=== PATIENT | male | born 1935 | race Caucasian/White ===

== ENCOUNTER 2018-08-12 14:37 | Observation (INO) | payer MEDICARE, OTHER ==
[~2018-08-12] VITALS: Ht 188 cm; Wt 97.5 kg
[~2018-08-12 14:37] MED LIST: ACYC400 PO; ASPI81CH PO; CHOL10002 PO; CLEM1.34 PO; DOXY100 PO; FISH OIL + D31 EACH PO; MAGNESIUM ZINC PO; MUCINEX FAST-M1 EAC8 PO; NAPR220 PO; OCUSIGHT PO; OXYC5 PO; PROSTATE PLUS PO; Super B Comple150 MG PO; TERB250 PO; TESTOSTERONE5 G1 TOP; TOCO1000 PO; VIAGRA PO; [UNRECOGNIZED DRUG - OTHER] PO; [UNRECOGNIZED DRUG - OTHER] PO; [UNRECOGNIZED DRUG - REMARK] PO
[2018-08-12 15:47] LABS: BASOPHILS ABSOLUTE AUTO 0.02 K/mm3 (0.00-0.23); BASOPHILS PERCENT AUTO 0 % (0-2); EOSINOPHILS ABSOLUTE AUTO 0.07 K/mm3 (0.00-0.68); EOSINOPHILS PERCENT AUTO 1 % (0-6); Hematocrit 42.7 % (37.0-53.0); Hemoglobin 14.5 g/dL (13.5-17.5); IMMATURE GRAN ABSOLUTE AUTO 0.02 K/mm3 (0.00-0.10); IMMATURE GRAN PERCENT AUTO 0 % (0-1); LYMPHOCYTES ABSOLUTE AUTO 1.62 K/mm3 (0.84-5.20); LYMPHOCYTES PERCENT AUTO 23 % (21-46); MONOCYTES ABSOLUTE AUTO 0.82 K/mm3 (0.16-1.47); MONOCYTES PERCENT AUTO 12 % (4-13); Mean Corpuscular HGB 31.3 pg (26.0-34.0); Mean Corpuscular Volume 92 fL (80-100); NEUTROPHILS ABSOLUTE AUTO 4.36 K/mm3 (1.96-9.15); NEUTROPHILS PERCENT AUTO 63 % (41-73); Platelet Count 271 K/mm3 (150-400); RDW Standard Deviation 47.8 fL (35.1-46.3); Red Blood Cell Count 4.64 M/mm3 (4.30-5.90); White Blood Cell Count 6.91 K/mm3 (4.00-11.30)
[2018-08-12 15:56] LABS: Alanine Aminotransfer (ALT/SGP 28 U/L (12-78); Albumin/Globulin Ratio 1.2 (0.8-1.8); Alk Phos 48 U/L (50-136); Anion Gap 5 mmol/L (6-16); Aspartate Aminotrans (AST/SGOT 23 U/L (12-37); Bilirubin, Total 0.3 mg/dL (0.1-1.0); Blood Urea Nitrogen 22 mg/dL (8-24); Bun/Creatinine Ratio 23.5 (12.0-20.0); CO2, Blood 27 mmol/L (21-32); Chloride, Blood 103 mmol/L (98-108); Creatinine, Blood 0.94 mg/dL (0.60-1.20); Globulin, Blood 3.3 g/dL (2.2-4.0); Glomerular Filtration Rate >60 (60-); Glucose, Blood 97 mg/dL (70-99); Potassium, Blood 4.7 mmol/L (3.5-5.5); Sodium, Blood 135 mmol/L (136-145); Total Protein, Blood 7.3 g/dL (6.4-8.2)
[2018-08-12 16:22] LABS: International Normalized Ratio 1.03; Prothrombin Time Results 10.9 Sec (9.7-11.5)
[2018-08-12] MEDS ORDERED: **INCOMPLETE MED REC (16:46)
[2018-08-12] MEDS ORDERED: PROP80ER PO (17:03)
[2018-08-12] MEDS ORDERED: TELMISARTAN-HC1 EAC1 PO (17:04)
[2018-08-12] MEDS ORDERED: Hair, Skin & N1 EACH PO (17:04)
--- NOTE | 2018-08-12 22:06 | NUR ---
PATIENT ADMISSION THE PATIENT WAS ADMITTED TO THE MEDICAL FLOOR FROM THE ER, AFTER REPORT WA GIVEN FOR THE PATIENT. THE PATIENT PRESENTED A&O, VITALS WNL, LUNGS CLEAR. THE PATIENT'S ADMISSION WAS COMPLETED AND THE PATIENT WENT TO SLEEP. WILL CONTINUE TO MONITOR.
--- NOTE | 2018-08-13 04:33 | NUR ---
SHIFT SUMMARY THE PATIENT WAS ADMITTED AT 2044 THIS SHIFT FOR OBSERVATION. THE PATIENT PRESENTED A&O X4, VITAL WNL AND WITH LUNGS THAT WERE CLEAR. THE PATIENT WAS PLACED ON TELLE. THE PATIENT STARTED SHOWING PAC'S AT THE RATE OF 10-15 PER MINUTE AT 0415. WHEN THE PATIENT WAS CHECKED UPON, HE DENIED ANY ISSUES, STATING HE FELT FINE. THE PATIENT HAS SLEPT MOST OF THE SHIFT SINCE ARRIVAL. WILL CONTINUE TO MONITOR.
[2018-08-13 05:29] LABS: Anion Gap 7 mmol/L (6-16); Blood Urea Nitrogen 20 mg/dL (8-24); Bun/Creatinine Ratio 21.9 (12.0-20.0); CO2, Blood 27 mmol/L (21-32); Calcium, Blood 8.9 mg/dL (8.5-10.1); Chloride, Blood 106 mmol/L (98-108); Creatinine, Blood 0.91 mg/dL (0.60-1.20); Glomerular Filtration Rate >60 (60-); Glucose, Blood 89 mg/dL (70-99); Potassium, Blood 3.9 mmol/L (3.5-5.5); Sodium, Blood 140 mmol/L (136-145)
--- NOTE | 2018-08-13 12:06 | NUR ---
Echocardiogram performed.
[2018-08-13] MEDS ORDERED: BAYER CHEWABLE81 MG PO (12:25)
[2018-08-13] MEDS ORDERED: ATOR40TA PO (12:26)
[2018-08-13] MEDS ORDERED: CLOP75 PO (12:27)
--- NOTE | 2018-08-13 13:40 | NUR ---
PATIENT DISCHARGED TO HOME. NURSE WENT OVER NEW MEDS WITH PATIENT AND . MEDS FAXED INTO [facility] IN [place].PATIENT HAD PREVIOUSLY REMOVED HIS OWN IV. CHARGE NURSE WRAPPED ARM, NO SS OF INFECTION NOTED. PATIENT DRESSED HIMSELF AND WAS ABLE TO WALK OUT TO CAR WITH HIS . REFUSED WC.
== END 2018-08-13 13:37 | disposition home or self-care (01) ==
LOC: ER 14:37 → MEDS 14:38
PROVIDERS: Emergency Medicine; ADMIT Hospitalist
DX: G45.9 Transient cerebral ischemic attack, unspecified (principal); I10 Essential (primary) hypertension; M19.90 Unspecified osteoarthritis, unspecified site; R25.1 Tremor, unspecified; Z88.8 Allergy status to other drugs, medicaments and biological substances; Z91.030 Bee allergy status; Z91.040 Latex allergy status; Z79.899 Other long term (current) drug therapy; Z79.82 Long term (current) use of aspirin
CPT/HCPCS: 36415; 70450; 80048; 80053; 85025; 85610; 85730; 93005; 93010; 93306; 93880; 96372; 96374; 99285-25; G0378; J1650

== ENCOUNTER → 2019-06-06 | Outpatient (CLI) | payer MEDICARE, OTHER ==
[~2019-06-06] MED LIST changes: +**INCOMPLETE MED REC; +ATOR40TA PO; +BAYER CHEWABLE81 MG PO; +CLOP75 PO; +Hair, Skin & N1 EACH PO; +PROP80ER PO; +TELMISARTAN-HC1 EAC1 PO
== END | disposition home or self-care (01) ==
LOC: PLD 08:33 → LAB SHORT 08:33
DX: D36.17 Benign neoplasm of peripheral nerves and autonomic nervous system of trunk, unspecified (principal)
CPT/HCPCS: 88305

== ENCOUNTER 2020-05-03 09:46 | Day surgery (SDC) | payer MEDICARE ==
[~2020-05-03] VITALS: Ht 188 cm; Wt 97.4 kg
[~2020-05-03 09:46] MED LIST changes: +ASPIR 8181 MG PO; +Acyclovir400 MG PO; +DONE5 PO; +MICARDIS HCT 81 EACH PO; +Revatio20 MG PO
== END 2020-05-03 11:42 | disposition home or self-care (01) ==
LOC: ORSCSDS 09:46
PROVIDERS: Student in an Organized Health Care Education/Training Program
PROC: 0DB58ZX Excision of Esophagus, Via Natural or Artificial Opening Endoscopic, Diagnostic (ICD-10-PCS; principal; 2020-05-03 11:00)
PROC: 0D758ZZ Dilation of Esophagus, Via Natural or Artificial Opening Endoscopic (ICD-10-PCS; principal; 2020-05-03 11:00)
PROC: 0DB78ZX Excision of Stomach, Pylorus, Via Natural or Artificial Opening Endoscopic, Diagnostic (ICD-10-PCS; principal; 2020-05-03 11:00)
DX: R13.10 Dysphagia, unspecified (principal); K29.70 Gastritis, unspecified, without bleeding; K21.9 Gastro-esophageal reflux disease without esophagitis; I10 Essential (primary) hypertension; Z86.73 Personal history of transient ischemic attack (TIA), and cerebral infarction without residual deficits; Z79.01 Long term (current) use of anticoagulants; Z79.899 Other long term (current) drug therapy; Z79.82 Long term (current) use of aspirin
CPT/HCPCS: 88305; 88342; J2704; J7120

== ENCOUNTER 2020-08-24 08:36 | Day surgery (SDC) | payer MEDICARE ==
[~2020-08-24] VITALS: Ht 188 cm; Wt 98.6 kg
[2020-08-24] MEDS ORDERED: PROP80ER (09:12)
[2020-08-24] MEDS ORDERED: THYR60 (09:14)
[2020-08-24] MEDS ORDERED: NAPR220 (09:14)
[2020-08-24] MEDS ORDERED: DONE5 (09:14)
--- NOTE | 2020-08-24 10:40 | NUR ---
08/24/20 1040 Homa Ndiaye BUPIVACAINE 0.5% 30 MLS MIXED W/ EPI 0.15 MLS TO CONSTITUE BUPIVACAINE 0.5 % 1:200,000 PER ORDER FOR INJECTION AT OPSITE BY DR. MAYA. DR. MAYA INJECTED 30 MLS AT OPSITE OF BUPIVACAINE 0.5% 1:200,000.
== END 2020-08-24 12:07 | disposition home or self-care (01) ==
LOC: ORSCSDS 08:36
PROVIDERS: Podiatrist Foot & Ankle Surgery
PROC: 0Y6S0Z3 Detachment at Left 2nd Toe, Low, Open Approach (ICD-10-PCS; principal; 2020-08-24 09:45)
PROC: 0Y6R0Z3 Detachment at Right 2nd Toe, Low, Open Approach (ICD-10-PCS; principal; 2020-08-24 09:45)
DX: M20.61 Acquired deformities of toe(s), unspecified, right foot (principal); M20.62 Acquired deformities of toe(s), unspecified, left foot; I10 Essential (primary) hypertension; I25.10 Atherosclerotic heart disease of native coronary artery without angina pectoris; F03.90 Unspecified dementia, unspecified severity, without behavioral disturbance, psychotic disturbance, mood disturbance, and anxiety; Z79.01 Long term (current) use of anticoagulants; Z79.899 Other long term (current) drug therapy
CPT/HCPCS: 88305; 88311; J0171; J0690; J1100; J2370; J2405; J2704; J3010; J7120

== ENCOUNTER 2020-11-07 14:03 | Emergency (ER) | payer MEDICARE ==
[~2020-11-07] VITALS: Ht 188 cm; Wt 95.2 kg
[~2020-11-07 14:03] MED LIST changes: +DONE5; +NAPR220; +PROP80ER; +THYR60
[2020-11-07] MEDS ORDERED: Valtrex1000 MG PO (14:27)
== END 2020-11-07 14:35 | disposition home or self-care (01) ==
LOC: ER 14:03
DX: B00.9 Herpesviral infection, unspecified (principal); I10 Essential (primary) hypertension; Z79.82 Long term (current) use of aspirin; Z79.899 Other long term (current) drug therapy; Z91.040 Latex allergy status; Z91.09 Other allergy status, other than to drugs and biological substances
CPT/HCPCS: 99282